=== PATIENT | female | born 1995 ===

== ENCOUNTER 2016-07-20 14:41 | Emergency (ER) | payer OTHER ==
[2016-07-20 14:42] VITALS: BMI 22.3
[2016-07-20 14:51] VITALS: BP 138/79; PULSE 94; RESP 19; TEMP 98.1; O2SAT 100
--- NOTE | 2016-07-20 15:30 | ED PDOC ---
HPI: Abdomen Time Seen by Provider: 07/20/16 14:58 Chief Complaint (Nursing): Abdominal Pain Chief Complaint (Provider): abdominal pain History Per: Patient History/Exam Limitations: no limitations Onset/Duration Of Symptoms: Unknown Outside of [place] travel?: No Additional Complaint(s): Laura Davison is a 20 year old female, with no previous medical history, who presents to the ED for confirmation of her secondary to taking a test at home. Patient states to experiencing lower abdominal discomfort along with fatigue but denies any nausea, vomiting, chills, fever or urinary symptoms. Patient reports running out of her control 2 months ago and is trying to get . PMD: none provided Abnormal Vaginal Bleeding: No Last Menstral Period: June 10, 2016 Past Medical History Reviewed: Historical Data Vital Signs: Last Vital Signs Temp 98.1 F 07/20/16 14:47 Pulse 94 H 07/20/16 14:47 Resp 19 07/20/16 14:47 BP 138/79 07/20/16 14:47 Pulse Ox 100 07/20/16 15:36 - Medical History PMH: No Chronic Diseases - Surgical History Surgical History: No Surg Hx - Family History Family History: States: Unknown Family Hx - Home Medications Home Medications: Ambulatory Orders Medication Instructions Recorded Doxycycline Hyclate [Doryx] 100 mg PO BID #14 cap 02/29/16 Miconazole Nitrate [Monistat 1] 1 each VG ONCE #1 kit 02/29/16 Dicyclomine [Bentyl] 20 mg PO Q8 PRN #30 tab 05/22/16 Ondansetron ODT [Zofran ODT] 4 mg PO TID #21 odt 05/22/16 - Allergies Allergies/Adverse Reactions: Allergies Allergy/AdvReac Type Severity Reaction Status Date / Time No Known Allergies Allergy Verified 05/21/16 23:50 Review of Systems ROS Statement: Except As Marked, All Systems Reviewed And Found Negative Constitutional: Negative for: Fever, Chills Gastrointestinal: Positive for: Abdominal Pain. Negative for: Nausea, Vomiting Genitourinary Female: Negative for: Dysuria, Frequency, Incontinence, Hematuria Physical Exam - Reviewed Nursing Documentation Reviewed: Yes Vital Signs Reviewed: Yes - Physical Exam Appears: Positive for: Well, Non-toxic, No Acute Distress Head Exam: Positive for: ATRAUMATIC, NORMAL INSPECTION, NORMOCEPHALIC Skin: Positive for: Normal Color, Warm, DRY Eye Exam: Positive for: EOMI, Normal appearance, PERRL ENT: Positive for: Normal ENT Inspection Neck: Positive for: Normal, Painless ROM Cardiovascular/Chest: Positive for: Regular Rate, Rhythm Respiratory: Positive for: CNT, Normal Breath Sounds Gastrointestinal/Abdominal: Positive for: Bowel Sounds, Soft, Tenderness ( bilateral lower abdomen ) Back: Positive for: Normal Inspection Extremity: Positive for: Normal ROM Neurologic/Psych: Positive for: Alert, Oriented - Laboratory Results Result Diagrams: 07/20/16 15:25 - ECG O2 Sat by Pulse Oximetry: 100 (RA) Pulse Ox Interpretation: Normal Medical Decision Making Medical Decision Making: Initial Impression: Initial Plan: * labs * urine * serum * reevaluation Scribe Attestation: Documented by Christa Ta, acting as a scribe for Sammi Blevins MD. Provider Scribe Attestation: All medical record entries made by the Scribe were at my direction and personally dictated by me. I have reviewed the chart and agree that the record accurately reflects my personal performance of the history, physical exam, medical decision making, and the department course for this patient. I have also personally directed, reviewed, and agree with the discharge instructions and disposition. Disposition - Clinical Impression Clinical Impression: - Patient ED Disposition Is Patient to be Admitted: No Doctor Will See Patient In The: Office Counseled Patient/Family Regarding: Diagnosis - Disposition [facility]errals: [facility] [Outside] [facility] [Outside] [facility] [Outside] Disposition: Routine/Home Disposition Time: 17:38 Condition: STABLE Instructions: (ED) Print Language: ARABIC - POA Present On Arrival: None
[2016-07-20 15:32] LABS: BASO # 0.1 K/uL (0.0-0.2); BASO % 0.9 % (0.0-2.0); EOS # 0.2 K/uL (0.0-0.7); EOS % 1.6 % (0.0-4.0); HEMATOCRIT 33.5 % (34.0-47.0); LYMPH # 2.5 K/uL (1.0-4.3); LYMPH % 27.4 % (20.0-40.0); MEAN CELL VOLUME 87.5 fl (81.0-99.0); MEAN CORPUSCULAR HEMOGLOBIN 28.9 pg (27.0-31.0); MEAN CORPUSCULAR HGB CONC 33.1 g/dL (33.0-37.0); MEAN PLATELET VOLUME 10.9 fl (7.2-11.7); MONO # 0.6 K/uL (0.0-0.8); MONO % 6.2 % (0.0-10.0); NEUT # 5.9 K/uL (1.8-7.0); NEUT % 63.9 % (50.0-75.0); RED CELL DISTRIBUTION WIDTH 13.5 % (11.5-14.5); WHITE BLOOD COUNT 9.3 K/uL (4.8-10.8)
== END 2016-07-20 17:26 | disposition short-term general hospital (02) ==
LOC: H.ER 14:41
DX: Z33.1 Pregnant state, incidental (principal)

== ENCOUNTER 2016-08-18 21:52 | Emergency (ER) | payer SELFPAY ==
[2016-08-18 21:52] VITALS: BMI 22.3
[2016-08-18 22:12] VITALS: BP 112/62; PULSE 83; RESP 16; TEMP 98.9; O2SAT 100
--- NOTE | 2016-08-18 22:35 | ED PDOC ---
HPI: Female Pain Time Seen by Provider: 08/18/16 22:31 Chief Complaint (Nursing): Female Genitourinary Chief Complaint (Provider): with abdominal pain and bleeding History Per: Patient Additional Complaint(s): 20-year-old female approximately 9 weeks presents to emergency department with lower abdominal pain and bleeding that started yesterday. Patient's denies any dysuria. No fever or chills. No nausea or vomiting. Patient has no history of previous miscarriages or ectopic pregnancies. Past Medical History Reviewed: Historical Data, Nursing Documentation, Vital Signs Vital Signs: Last Vital Signs Temp 98.9 F 08/18/16 22:07 Pulse 83 08/18/16 22:07 Resp 16 08/18/16 22:07 BP 112/62 08/18/16 22:07 Pulse Ox 100 08/18/16 22:07 - Medical History PMH: No Chronic Diseases - Surgical History Surgical History: No Surg Hx - Family History Family History: States: No Known Family Hx - Living Arrangements Living Arrangements: With Family - Social History Current smoker - smoking cessation education provided: No Alcohol: None Drugs: Denies - Home Medications Home Medications: Ambulatory Orders Medication Instructions Recorded Doxycycline Hyclate [Doryx] 100 mg PO BID #14 cap 02/29/16 Miconazole Nitrate [Monistat 1] 1 each VG ONCE #1 kit 02/29/16 Dicyclomine [Bentyl] 20 mg PO Q8 PRN #30 tab 05/22/16 Ondansetron ODT [Zofran ODT] 4 mg PO TID #21 odt 05/22/16 Nitrofurantoin Macrocrystals 100 mg PO BID #14 cap 08/19/16 [Macrobid] - Allergies Allergies/Adverse Reactions: Allergies Allergy/AdvReac Type Severity Reaction Status Date / Time No Known Allergies Allergy Verified 05/21/16 23:50 Review of Systems ROS Statement: Except As Marked, All Systems Reviewed And Found Negative Constitutional: Negative for: Fever Cardiovascular: Negative for: Chest Pain Respiratory: Negative for: Cough Gastrointestinal: Positive for: Abdominal Pain. Negative for: Nausea, Vomiting Genitourinary Female: Positive for: Vaginal Bleeding, Pelvic Pain. Negative for : Dysuria, Frequency Physical Exam - Reviewed Nursing Documentation Reviewed: Yes Vital Signs Reviewed: Yes - Physical Exam Appears: Positive for: Well, Non-toxic, No Acute Distress Skin: Negative for: Rash Eye Exam: Positive for: Normal appearance, EOMI, PERRL Cardiovascular/Chest: Positive for: Regular Rate, Rhythm Respiratory: Positive for: Normal Breath Sounds Gastrointestinal/Abdominal: Positive for: Soft. Negative for: Tenderness, Distended, Guarding, Rebound Back: Negative for: L CVA Tenderness, R CVA Tenderness Neurologic/Psych: Positive for: Alert, Oriented - Laboratory Results Result Diagrams: 08/18/16 23:41 08/18/16 23:41 Urine POC: Positive Urine dip results: Positive for: Leukocyte Esterase (small), Blood (moderate). Negative for: Nitrate, Ketones, Glucose, Bilirubin, Protein - ECG O2 Sat by Pulse Oximetry: 100 Pulse Ox Interpretation: Normal - Other Rad OB US X-Ray: Read By Radiologist X-Ray Interpretation: see below Medical Decision Making Medical Decision Makin20 year old female, with abdominal pain and bleeding Plan: CBC CMP Beta quant Urine dip OB US Blood type US: FINDINGS: Gestation: Single live intrauterine gestation. heart rate of 168 beats per minute. [place]-rump length of 3.48 cm, correlating with gestational age of 10 weeks 3 days. Uterus/cervix: No subchorionic hemorrhage. No cervical dilatation or effacement. Ovaries: RIGHT ovary: 1.5 x 1.6 x 2.1 cm anechoic lesion. LEFT ovary: Normal. No adnexal masses. Free fluid: No significant free fluid. IMPRESSION: 1. Single live intrauterine gestation. 2. RIGHT ovarian cyst. 3. Incidental/non-acute findings are described above. Patient is aware of all diagnostic testing results, all questions answered. Urine dip demonstrates small leukocytes, initial dose of Macrobid given in ED along with prescription for same. Patient was referred to [facility] clinic for follow-up. Disposition - Clinical Impression Clinical Impression: UTI (urinary tract infection), Threatened - Patient ED Disposition Is Patient to be Admitted: No Counseled Patient/Family Regarding: Studies Performed, Diagnosis, Need For Followup, Rx Given - Disposition [facility]errals: [facility] [Outside] Disposition: Routine/Home Disposition Time: 01:47 Condition: STABLE Additional Instructions: Tick prescription medications as directed. Tylenol for pain as needed. Rest and drink plenty of fluids. Follow-up with improvement spec or women's clinic in 2-3 days. Prescriptions: Nitrofurantoin Macrocrystals [Macrobid] 100 mg PO BID #14 cap Instructions: Threatened Miscarriage (ED), Urinary Tract Infection in Women (ED ) Forms: [facility] ED School/Work Excuse Print Language: YI Results - Lab Results Lab Results: 08/18/16 08/18/16 08/18/16 23:41 23:41 23:40 WBC 7.8 RBC 3.63 L Hgb 10.6 L Hct 31.9 L MCV 87.8 MCH 29.3 MCHC 33.3 RDW 14.6 H Plt Count 141 MPV 11.7 Neut % (Auto) 64.9 Lymph % (Auto) 25.4 Winn % (Auto) 7.2 Eos % (Auto) 1.8 Baso % (Auto) 0.7 Neut # 5.0 Lymph # 2.0 Winn # 0.6 Eos # 0.1 Baso # 0.1 Sodium 138 Potassium 3.6 Chloride 105 Carbon Dioxide 23 Anion Gap 13 BUN 6 L Creatinine 0.5 L Est GFR ( Amer) > 60 Est GFR (Non-Af Amer) > 60 Random Glucose 91 Calcium 9.1 Total Bilirubin 0.1 L AST 19 ALT 21 Alkaline Phosphatase 34 L D Total Protein 6.8 Albumin 3.9 Globulin 2.9 Albumin/Globulin Ratio 1.4 Beta HCG, Quant 88195.00 Blood Type A POSITIVE Antibody Screen Negative BBK History Checked No verified bt
[2016-08-18 23:52] LABS: BASO # 0.1 K/uL (0.0-0.2); BASO % 0.7 % (0.0-2.0); EOS # 0.1 K/uL (0.0-0.7); EOS % 1.8 % (0.0-4.0); HEMATOCRIT 31.9 % (34.0-47.0); LYMPH % 25.4 % (20.0-40.0); MEAN CELL VOLUME 87.8 fl (81.0-99.0); MEAN CORPUSCULAR HEMOGLOBIN 29.3 pg (27.0-31.0); MEAN CORPUSCULAR HGB CONC 33.3 g/dL (33.0-37.0); MEAN PLATELET VOLUME 11.7 fl (7.2-11.7); MONO # 0.6 K/uL (0.0-0.8); MONO % 7.2 % (0.0-10.0); NEUT % 64.9 % (50.0-75.0); RED CELL DISTRIBUTION WIDTH 14.6 % (11.5-14.5); WHITE BLOOD COUNT 7.8 K/uL (4.8-10.8)
[2016-08-19 00:01] LABS: ALB/GLOB RATIO 1.4 (1.0-2.1); ALKALINE PHOSPHATASE 34 U/L (38-126); ALT/SGPT 21 U/L (9-52); AST/SGOT 19 U/L (14-36); BILIRUBIN,TOTAL 0.1 mg/dl (0.2-1.3); BLOOD UREA NITROGEN 6 mg/dl (7-17); CALCIUM 9.1 mg/dL (8.4-10.2); CARBON DIOXIDE 23 mmol/L (22-30); CHLORIDE 105 mmol/L (98-107); GFR AFRICAN-AMERICAN > 60; GLUCOSE,RANDOM 91 mg/dL (65-105); POTASSIUM 3.6 MMOL/L (3.6-5.0); SODIUM 138 mmol/l (132-148); TOTAL PROTEIN 6.8 G/DL (6.3-8.2)
--- NOTE | 2016-08-19 01:01 | US ---
EXAM: US First Trimester, Transabdominal CLINICAL HISTORY: 20 years old, female; Signs and symptoms; Lmp or gestational age (in weeks): 06/10/16; Antepartum complications; Other: Spotting; ; Additional info: 9 weeks with pain and bleeding TECHNIQUE: Real-time transabdominal obstetrical ultrasound of the maternal pelvis and a first trimester with image documentation. COMPARISON: No relevant prior studies available. FINDINGS: Gestation: Single live intrauterine gestation. heart rate of 168 beats per minute. [place]-rump length of 3.48 cm, correlating with gestational age of 10 weeks 3 days. Uterus/cervix: No subchorionic hemorrhage. No cervical dilatation or effacement. Ovaries: RIGHT ovary: 1.5 x 1.6 x 2.1 cm anechoic lesion. LEFT ovary: Normal. No adnexal masses. Free fluid: No significant free fluid. IMPRESSION: 1. Single live intrauterine gestation. 2. RIGHT ovarian cyst. 3. Incidental/non-acute findings are described above.
== END 2016-08-19 02:30 | disposition home or self-care (01) ==
LOC: H.ER 21:52
DX: O23.41 Unspecified infection of urinary tract in pregnancy, first trimester (principal); O20.0 Threatened abortion; Z3A.10 10 weeks gestation of pregnancy